=== PATIENT | male | born 1995 | race Caucasian/White ===

== ENCOUNTER 2018-07-17 17:44 | Emergency (ER) | payer OTHER, SELFPAY ==
[2018-07-17 17:45] VITALS: BP 159/86; PULSE 90; RESP 16; TEMP 36.2; O2SAT 98; BMI 40.1
--- NOTE | 2018-07-17 17:59 | ED.VISSUMM ---
- ER Visit Summary Date of Service: 07/17/18 Chief Complaint: Foot injury History of Present Illness: The patient is a 23 M who states that he was at work today when a iván came and struck his right foot and ankle. He states he has pain with movement of the toes. States the bottom of his foot seemed purple earlier. He had steel toed boots on but it hit just proximal to the plate. Physical Examination: Afebrile vital signs are stable The dorsum of the foot is tender to palpation. There is no significant ecchymosis or deformity. Neurovascular intact. No obvious deficits in function. Limited function due to pain. Test Results: Foot x-rays were negative for fracture Emergency Department Course and Treatment: Patient will be discharged home. Instructions for ice and ibuprofen. He is to follow-up with corporate care if not improving. Return if worsening or concerns. Impression: 1. Right foot contusion This note was generated with [employer] dictation software. It may contain incorrect words, spelling, and punctuation that were not noted in review of the chart prior to signing ED Disposition - Plan for ED Patient: Disposition: Home or Assisted Living Chief Complaint: Lower Extremity Injury Instructions: ED Contusion Lower Ext Referrals: Corporate,Care [GROUP OF PHYSICIANS] - As Needed
--- NOTE | 2018-07-17 18:07 | ED.DCSUM_ITS ---
- ER Visit Summary Date of Service: 07/17/18 Chief Complaint: Foot injury History of Present Illness: The patient is a 23 M who states that he was at work today when a iván came and struck his right foot and ankle. He states he has pain with movement of the toes. States the bottom of his foot seemed purple earlier. He had steel toed boots on but it hit just proximal to the plate. Physical Examination: Afebrile vital signs are stable The dorsum of the foot is tender to palpation. There is no significant ecchymosis or deformity. Neurovascular intact. No obvious deficits in function. Limited function due to pain. Test Results: Foot x-rays were negative for fracture Emergency Department Course and Treatment: Patient will be discharged home. Instructions for ice and ibuprofen. He is to follow-up with corporate care if not improving. Return if worsening or concerns. Impression: 1. Right foot contusion This note was generated with [employer] dictation software. It may contain incorrect words, spelling, and punctuation that were not noted in review of the chart prior to signing ED Disposition - Plan for ED Patient: Disposition: Home or Assisted Living Chief Complaint: Lower Extremity Injury Instructions: ED Contusion Lower Ext Referrals: Corporate,Care [GROUP OF PHYSICIANS] - As Needed
--- NOTE | 2018-07-17 18:10 | RAD_ITS ---
STUDY: X-RAY - RIGHT FOOT CLINICAL: Male, 23 years old. Heavy piece of equipment hit foot. TECHNIQUE: 3 view(s) of the foot. COMPARISON: None. FINDINGS: Normal talus, calcaneus, and tarsal bones. Normal visualized subtalar, talonavicular, calcaneocuboid, tarsal and tarsometatarsal articulations. Normal metatarsi. Normal metatarsophalangeal joint of the great toe. Normal interphalangeal joint of the great toe. Normal phalanges of the great toe. Normal second through fifth metatarsophalangeal joints. Normal interphalangeal joints and phalanges of the lesser toes. The soft tissue structures are unremarkable. RAD/Foot min 3 Views IMPRESSION: No acute osseous injury. Electronically Signed: Teagan Gillespie MD at 18:34 EST Tel , Service support ,
[2018-07-17 19:17] VITALS: RESP 16
--- OUTSIDE RECORDS SUMMARY | 2018-09-12 09:51 | XMS RPT_ITS ---
:1995 Demographics Address [address] [place] [address] Preferred Language [facility]- Marital Status Unknown Alevism Affiliation Unknown Race Ethnic Group Unknown Author Organization [facility] Care Team Providers Name Role Phone Juve Ward Attending Unavailable Grover Truong Primary Care Unavailable Grover Truong Primary Care Unavailable Sokari, Telemate Admitting Unavailable Beau, Telemate Attending Unavailable Gabriel Moore Attending Unavailable Primay Care Physicia, No Primary Care Unavailable PROBLEMS PROBLEMS No Problem Records FoundPROCEDURES PROCEDURES No Procedure Records FoundRESULTS RESULTS EMERGENCY DEPARTMENT Observed: 07/19/2018 Status: F Source: [place] SUMMARY 8:16 AM [facility] [place] REPOSITORY [facility] Medical Records Department [address] [address] Emergency Department Summary 07/17/18 1759 MR#: [id number] Acct: [id number] Name: MUKESH HIGGINBOTHAM Rep #: [id number] : 1995 23 From: Gabriel Moore DO PCP: Care Physician, No Primary Status: DEP ER - ER Visit Summary Date of Service: 07/17/18 Chief Complaint: Foot injury History of Present Illness: The patient is a 23 M who states that he was at work today when a iván came and struck his right foot and ankle. He states he has pain with movement of the toes. States the bottom of his foot seemed purple earlier. He had steel toed boots on but it hit just proximal to the plate. Physical Examination: Afebrile vital signs are stable The dorsum of the foot is tender to palpation. There is no significant ecchymosis or deformity. Neurovascular intact. No obvious deficits in function. Limited function due to pain. Test Results: Foot x-rays were negative for fracture Emergency Department Course and Treatment: Patient will be discharged home. Instructions for ice and ibuprofen. He is to follow-up with corporate care if not improving. Return if worsening or concerns. Impression: 1. Right foot contusion This note was generated with [employer] Technology[employer] software. It may contain incorrect words, spelling, and punctuation that were not noted in review of the chart prior to signing ED Disposition - Plan for ED Patient: Disposition: Home or Assisted Living Chief Complaint: Lower Extremity Injury Instructions: ED Contusion Lower Ext Referrals: Corporate,Care [GROUP OF PHYSICIANS] - As Needed What to do if you have Problems For any increased pain, shortness of breath, bleeding, nausea or vomiting, chest pain, or any unexpected problems, contact your Primary Care Provider. Call [facility] ([phone]) or report to the closest Emergency Room. Call 911 if necessary. 07/19/18 0816 <Electronically signed by Gabriel Moore DO> Date Gabriel Moore DO Cosigner Signature (If Indicated): Date CC: No Primary Care Physician FOOT MIN 3 VIEWS Observed: 07/17/2018 Status: F Source: [place] 5:58 PM [facility] REPOSITORY [facility] Imaging Services [address] [place] [id number] Foot min 3 Views MR#: [id number] Acct: [id number] Name: MUKESH HIGGINBOTHAM Rep #: [id number] : 1995 M 23 From: Teagan Gillespie MD PCP: Care Physician, No Primary Status: REG ER Study: Foot min 3 Views Date of Exam: 07/17/18 Exam# [id number] Ordering Dr: Gabriel Moore DO STUDY: X-RAY - RIGHT FOOT CLINICAL: Male, 23 years old. Heavy piece of equipment hit foot. TECHNIQUE: 3 view(s) of the foot. COMPARISON: None. FINDINGS: Normal talus, calcaneus, and tarsal bones. Normal visualized subtalar, talonavicular, calcaneocuboid, tarsal and tarsometatarsal articulations. Normal metatarsi. Normal metatarsophalangeal joint of the great toe. Normal interphalangeal joint of the great toe. Normal phalanges of the great toe. Normal second through fifth metatarsophalangeal joints. Normal interphalangeal joints and phalanges of the lesser toes. The soft tissue structures are unremarkable. RAD/Foot min 3 Views IMPRESSION: No acute osseous injury. Electronically Signed: Teagan Gillespie MD at 18:34 EST Tel , Service support , CC: No Primary Care Physician; Gabriel Moore DO Arc Trimmer: Signed Observed: 11/29/2017 Status: F Source: [place] RAPID STREP A 1:54 AM [facility] SCREEN REPOSITORY Final Report: Streptococcus Group A screen negative Performed By: #### [id number] #### TONY Microbiology Subsection [address] [place] [address] INFLUENZA A&B AG Collected: 11/29/2017 Status: F Source: [place] 1:54 AM [facility] REPOSITORY TYPE CODE TESTS RESULT OUT OF REFERENCE UNITS RANGE LAB 49213779(L Negative OINC) Normal Influenzae A Ag Negative LAB [id number](L Negative OINC) Normal Influenzae B Ag Negative Performed By: #### [id number] #### TONY [facility] Micro SubSection , ALLERGIES ALLERGIES DATE TYPE / CODE NAME / CODE REACTION SEVERITY SOURCE 07/17/2018 Drug No Known Unknown [facility] Allergy/416 Allergies/J33873 Hospital 937818(SNOM 0388(RXNORM) Repository ED CT) Drug/459162 No Known [facility] 003(SNOMED Allergies [facility]) System Repository ENCOUNTERS ENCOUNTERS ADMIT/DISCHARGE ACCOUNT NUMBER ADMITTING ENCOUNTER LOCATION SOURCE CLASS 07/17/2018/07/17/20 [id number] Emergency [facility] [place] [facility] ding:ED Repository 11/29/2017/11/30/19 [id number] Sokari, Emergency [address] ding:[facility] System EDRoom: WR Repository 08/16/2017/08/16/20 [id number] Ambulatory [address] ding:[facility] Repository racRoom: Room 1 PAYERS PAYERS ENCOUNTER GUARANTOR PAYER SUBSCRIBER SOURCE 07/17/2018 MUKESH A Primary MUKESH A [place] [id number] 08/22 Insurance:SELF INS LYNCHDOB: [facility] Number: [id number] [id number] Repository [address]Ixu: (637) Date:[id number] [phone] () [facility] [address] [address], [place] [address]VN: 07/17/2018 Secondary NOT GIVENUNK [facility] Insurance:SELF PAY [facility] Number: Effective Repository Date:2018-07-17 11/29/2017 MUKESH A Primary MUKESH A [facility] LYNCHDOB: Insurance:Medical LYNCHDOB: [facility] MutualPolicy Number: [id number] System 08/22 [place] Effective 08/22 TYSHAWN Repository [facility], Date:2017-11-29 - [place], [place] [id number] [address]Nzr: Name:Medical MutualPO [id number]: [address] [id number], () [place] [id number]: [phone] () [phone] () 08/16/2017 MUKESH A Primary MUKESH [place] LYNCHDOB: Insurance:1500 LYNCHDOB: [facility] MEDICAL MUTUALPolicy [id number] System [facility], Number: [place]en PATEL, Repository [place] [id number]: Date:2017-08-02 [place] [id number]: [id number] () Name:CD:[id number] O (HP)Tel: [phone], [place] [phone] () [address]GF:
== END 2018-07-17 19:18 | disposition home or self-care (01) ==
PROVIDERS: Emergency Provider Emergency Medicine
DX: S90.31XA Contusion of right foot, initial encounter (principal); W50.0XXA Accidental hit or strike by another person, initial encounter; Y93.9 Activity, unspecified; Y92.9 Unspecified place or not applicable; Y99.0 Civilian activity done for income or pay; Z72.0 Tobacco use
CPT/HCPCS: 73630; 99282

== ENCOUNTER 2019-05-20 19:54 | Emergency (ER) | payer OTHER, SELFPAY ==
[2019-05-20 19:56] VITALS: BP 134/85; PULSE 88; RESP 18; TEMP 36.6; O2SAT 99; BMI 38.0
--- NOTE | 2019-05-20 20:38 | CT_ITS ---
STUDY: CT ABDOMEN AND PELVIS WITHOUT CONTRAST REASON FOR EXAM: Male, 23 years old. Pain RADIATION DOSAGE (If Supplied By Facility): DLP = ( 1167.44 ) mGycm TECHNIQUE: Transaxial images were obtained from the dome of the diaphragm to the symphysis pubis without oral contrast, and without intravenous contrast. Sagittal and coronal images were reconstructed. Individualized dose optimization techniques were used for this CT. COMPARISON: None. FINDINGS: Evaluation of the abdominal viscera is limited in the absence of intravenous contrast. The visualized lung bases are clear. The visualized portions of the heart and pericardium are within normal limits. There are no calcified gallstones present. The liver demonstrates an unremarkable unenhanced appearance. The spleen is normal in size. The pancreas demonstrates an unremarkable unenhanced appearance. The adrenal glands are within normal limits. There are no obstructing renal stones. There is no hydronephrosis. Normal visualized stomach. There is no bowel obstruction or inflammation. The appendix is normal. The aorta is normal in caliber. There is no abdominal or pelvic free air, free fluid, fluid collection or lymphadenopathy. There are no destructive osseous lesions. CT/Abdomen/Pelvis without Cont IMPRESSION: No acute abdominal or pelvic pathology demonstrated on this noncontrast CT. Electronically Signed: Red Edwards, at 21:18 EDT Tel , Service support ,
--- NOTE | 2019-05-20 21:23 | ED.VIS.GEN ---
History of Present Illness Narrative: 23-year-old male with no past medical history presents with concern for right groin pain. States that he went to lift a large metal object at work and felt a pain that radiated from his right abdomen down into his right groin. Describes it as sharp and worse with movement. Denies any numbness or tingling. Denies any nausea or vomiting. Denies any change in urination. <Carlos Weinstein - Last Filed: 05/20/19 21:33> <Mickey Srtatton - Last Filed: 05/20/19 22:16> Chief Complaint: Abd Pain Past Medical History Prior records reviewed: Yes Past Medical History: None Surgical History: noncontributory Smoking Status: Current every day smoker <Carlos Weinstein - Last Filed: 05/20/19 21:33> <Mickey Stratton - Last Filed: 05/20/19 22:16> - Allergies and Home Meds Allergies/Adverse Reactions: Allergies mold Allergy (Verified 05/20/19 19:59) Unknown Primary Care Physician: Care Physician,No Primary [Primary Care Provider] - Review of Systems General: Denies: Chills, Fever, Sweats Eyes: Denies: Visual changes - bilaterally, Diplopia ENT: Denies: Rhinorrhea, Sore throat Cardiovascular: Denies: Chest pain, Palpitations Respiratory: Denies: Dyspnea, Cough, Dyspnea on exertion Gastrointestinal: Denies: Abdominal pain, Nausea, Vomiting, Diarrhea, Melena, Hematochezia Genitourinary: Denies: Dysuria, Hematuria, Frequency Musculoskeletal: Reports: Myalgias. Denies: Back pain, Extremity Pain Skin: Denies: Rash, Wounds Neurological: Denies: Headache, Weakness, Numbness <Carlos Weinstein - Last Filed: 05/20/19 21:33> Physical Exam Vital Signs/Narrative: Vital Signs Temp Pulse Resp BP Pulse Ox 05/20/19 19:56 97.9 F 88 18 134/85 H 99 General: Well nourished, Well developed, No Acute Distress Head: Normocephalic, Atraumatic Eyes: Perrl, EOMI ENT: Moist mucous membranes, No rhinorrhea Neck: Supple, Nontender Cardiovascular: Regular rate, Regular rhythm, No murmurs Respiratory: No distress, CTA bilaterally, Chest nontender Abdomen: Soft, Nontender, Nondistended, Normal bowel sounds : - - Scrotum normal without skin changes. No palpable mass. Back: Nontender, Normal Inspection Extremities: Nontender, No edema Skin: Normal color, No rash Neurological: Alert, Oriented x3, Cranial nerves II-XII grossly intact, Normal Strength, Normal Sensation Psychological: Normal affect, Normal Mood <Carlos Weinstein - Last Filed: 05/20/19 21:33> Vital Signs/Narrative: Vital Signs Temp Pulse Resp BP Pulse Ox 05/20/19 21:57 80 18 128/75 H 100 05/20/19 19:56 97.9 F 88 18 134/85 H 99 <Mickey Stratton - Last Filed: 05/20/19 22:16> Diagnostic/Tx/Re-eval CT of the abdomen pelvis without contrast shows no acute process. - Medical Decision Making Patient appears well nontoxic. Vital signs within normal limits. CT the abdomen pelvis was done which shows no acute process. Likely etiology is muscle strain. Will be discharged home with naproxen. Asked to follow-up with primary care provider within the next 2 to 3 days. Discharged home in stable condition. <Carlos Weinstein - Last Filed: 05/20/19 21:33> - Medical Decision Making Patient was seen with me. I did a [id number] examination of the patient. Patient presents with right lower abdominal and inguinal pain that began today while at work. Patient states he was lifting something with his right arm and felt sharp pain in his right lower abdomen and inguinal area. Patient states the pain radiates into his testicle. Patient denies any fevers or chills. Patient denies any nausea or vomiting. Vital signs are stable. Patient is afebrile. Abdomen is soft. Bowel sounds are normal. There is some mild right lower tenderness. There is no rebound or guarding noted. There is some right inguinal tenderness. There is no inguinal hernia noted. There is some tenderness over the right testicle and epididymis. There is a vertical lie. There is no evidence of torsion. Cremasteric reflex is normal. CT scan of the abdomen pelvis was obtained. There is no acute process. There is no inguinal hernia. Patient was instructed to follow-up with his primary care physician in 2 to 3 days. Patient was given a prescription for Naprosyn. Patient understood and was agreeable with the plan. All questions were answered. <Mickey Stratton - Last Filed: 05/20/19 22:16> ED Disposition <Carlos Weinstein - Last Filed: 05/20/19 21:33> <Mickey Stratton - Last Filed: 05/20/19 22:16> - Plan for ED Patient: Disposition: Home or Assisted Living Diagnosis: Abdominal wall strain Instructions: MUSCLE STRAIN, Abdomen Prescriptions: Naproxen 500 mg PO BID #10 tab Referrals: Care Physician,No Primary [Primary Care Provider] -
[2019-05-20] MEDS: Ketorolac 15 MG/ML Vial IM (21:41)
[2019-05-20 21:57] VITALS: BP 128/75; PULSE 80; RESP 18; O2SAT 100
== END 2019-05-20 21:57 | disposition home or self-care (01) ==
PROVIDERS: Emergency Provider Emergency Medicine
DX: S39.011A Strain of muscle, fascia and tendon of abdomen, initial encounter (principal); X50.0XXA Overexertion from strenuous movement or load, initial encounter; Y93.89 Activity, other specified; Y92.9 Unspecified place or not applicable; Y99.0 Civilian activity done for income or pay; F17.200 Nicotine dependence, unspecified, uncomplicated
CPT/HCPCS: 74176; 96372; 99283